=== PATIENT | male | born 1940 | race Asian ===

== ENCOUNTER → 2018-05-23 | Outpatient (CLI) | payer MEDICARE, BC ==
[~2018-05-23] MED LIST: ASPIRIN 81M81 MG/TA2 PO; BRILINTA90 MG PO; CELEBREX 200MG200 MG PO; CENTRUM SILVER1 TA1 PO; DARVOCET A500 51 TAB PO; EFFIENT10 MG PO; EPA FISH OIL1000 MG PO; GLUCOPHAGE XR500 M1 PO; GLUCOSAMINE SU750 M1 PO; LOPRESSOR 550 MG/TAB PO; LORTAB 5/500 501 TAB PO; NITROSTAT0.4 MG/TAB SL; NORCO 325 MG-51 TAB PO; OMEGA-3 FISH1200 MG PO; PLAVIX 75MG TAB75 MG PO; PRAVACHOL 40MG40 MG PO; VITAMIN B COMPL1 TA1 PO; VITAMIN D32000 IU PO; VITAMIN D3400 IU PO
== END ==
LOC: COL.RAD 08:26
DX: F03.90 Unspecified dementia, unspecified severity, without behavioral disturbance, psychotic disturbance, mood disturbance, and anxiety (principal); Z53.8 Procedure and treatment not carried out for other reasons

== ENCOUNTER → 2018-07-16 | Outpatient (CLI) | payer MEDICARE, BC | LOC: MHCPAIN 10:41 | DX: G89.29 Other chronic pain (principal); M47.817 Spondylosis without myelopathy or radiculopathy, lumbosacral region; M53.3 Sacrococcygeal disorders, not elsewhere classified | CPT/HCPCS: G0463 ==

== ENCOUNTER → 2018-08-27 | Outpatient (CLI) | payer MEDICARE, BC | LOC: MHCPAIN 13:02 | DX: G89.29 Other chronic pain (principal); M47.817 Spondylosis without myelopathy or radiculopathy, lumbosacral region; M53.3 Sacrococcygeal disorders, not elsewhere classified | CPT/HCPCS: G0463 ==

== ENCOUNTER → 2018-09-19 | Outpatient (CLI) | payer MEDICARE, BC | LOC: MHCPAIN 09:58 | DX: M47.817 Spondylosis without myelopathy or radiculopathy, lumbosacral region (principal); M54.16 Radiculopathy, lumbar region ==

== ENCOUNTER → 2018-09-25 | Outpatient (CLI) | payer MEDICARE, BC | LOC: MHCPAIN 13:32 | DX: G89.29 Other chronic pain (principal); M47.817 Spondylosis without myelopathy or radiculopathy, lumbosacral region; M53.3 Sacrococcygeal disorders, not elsewhere classified | CPT/HCPCS: G0463 ==

== ENCOUNTER → 2018-10-03 | Outpatient (CLI) | payer MEDICARE, BC | LOC: MHCPAIN 13:04 | DX: M47.817 Spondylosis without myelopathy or radiculopathy, lumbosacral region (principal); M54.16 Radiculopathy, lumbar region | CPT/HCPCS: J3010 ==

== ENCOUNTER → 2018-10-17 | Outpatient (CLI) | payer MEDICARE, BC | LOC: MHCPAIN 13:33 | DX: M47.817 Spondylosis without myelopathy or radiculopathy, lumbosacral region (principal); M54.16 Radiculopathy, lumbar region | CPT/HCPCS: J2250; J3010 ==

== ENCOUNTER 2022-09-06 14:00 | Outpatient (RCR) | payer MEDICARE, BC, OTHER | END 2022-09-18 | disposition home or self-care (01) | LOC: WSPT | DX: F03.90 Unspecified dementia, unspecified severity, without behavioral disturbance, psychotic disturbance, mood disturbance, and anxiety (principal); T45.2X1S Poisoning by vitamins, accidental (unintentional), sequela; G47.33 Obstructive sleep apnea (adult) (pediatric); R26.89 Other abnormalities of gait and mobility ==

== ENCOUNTER 2023-02-15 10:36 | Outpatient (RCR) | payer MEDICARE, BC ==
[~2023-02-15 10:36] MED LIST changes: +ARICEPT ODT10 MG PO; +IMDUR 30MG30 MG/TAB PO; +LIPITOR 40MG TA40 MG PO; +LIPITOR 80MG80 MG PO; +RANEXA 500MG T500 MG PO; +ZANAFLEX CAPSULE4 MG PO
== END 2023-02-16 ==
LOC: WSPT
DX: F03.90 Unspecified dementia, unspecified severity, without behavioral disturbance, psychotic disturbance, mood disturbance, and anxiety (principal); R27.0 Ataxia, unspecified; R29.6 Repeated falls

== ENCOUNTER 2023-03-15 10:30 | Outpatient (RCR) | payer MEDICARE, BC | END 2023-03-18 | disposition home or self-care (01) | LOC: WSPT | DX: F03.90 Unspecified dementia, unspecified severity, without behavioral disturbance, psychotic disturbance, mood disturbance, and anxiety (principal); R27.0 Ataxia, unspecified; R29.6 Repeated falls; G47.19 Other hypersomnia ==